=== PATIENT | male | born 1955 | race African-American/Black ===

== ENCOUNTER 2017-08-30 15:30 | Emergency (ER) | payer OTHER ==
[~2017-08-30] VITALS: Ht 182.9 cm; Wt 103.9 kg
--- NOTE | 2017-08-30 18:33 | Diagnostic Imaging Report ---
Exam: Head CT without contrast History: Facial numbness Comparison studies: None Technique: Axial images were obtained from the skull base to the vertex. Coronal and sagittal images reconstructed from the axial data. Intravenous contrast: None Findings: Scalp: No abnormalities. Bones: No fractures, blastic or lytic lesions. Brain sulci: Appropriate for age. Ventricles: Normal in size and configuration. No hydrocephalus. Extra-axial spaces: No masses, no fluid collection. Parenchyma: A few subtle hypodensities in the supratentorial white matter are nonspecific but may reflect mild chronic microvascular ischemic changes. No masses, acute hemorrhage, acute or chronic vascular insults. Sellar/suprasellar region: No abnormalities. Craniocervical junction: Patent foramen magnum. No Chiari one malformation. 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 Small right middle ethmoid and partially imaged right maxillary sinus retention cyst. IMPRESSION: 1. No acute intracranial abnormalities. 2. Mild supratentorial chronic microvascular ischemic changes. Signed by: Dr. Flavio Tamayo M.D. on 08/30/2017 6:30 PM
== END 2017-08-30 19:39 | disposition home or self-care (01) ==
LOC: ER 15:30
DX: G51.0 Bell's palsy (principal)
CPT/HCPCS: 70450; 99284